=== PATIENT | female | born 1935 | race African-American/Black ===

== ENCOUNTER 2016-08-22 12:07 | Emergency (ER) | payer MEDICARE, MEDICAID ==
[~2016-08-22] VITALS: Ht 167.6 cm; Wt 110.0 kg
[~2016-08-22 12:07] MED LIST: ACET-2853 PO; ALLO100T PO; AZIT500T3 PO; BISA5TAB10 PO; CHOL100044 PO; COLC0.6T66 PO; CRANBERRY JUICE PO; CYAN100053 IM; FLUT16SP15 NS; FURO-152 PO; GABA300S PO; LEVO125T8 PO; LOSA100T14 PO; MECL-115 PO; MELO-105 PO; MULT1CAP64 PO; OCD PO; OMEP20CA10 PO; SENN-169 PO; [UNRECOGNIZED DRUG - CODE] PO; [UNRECOGNIZED DRUG - CODE] PO
[2016-08-22] MEDS ORDERED: ACETAMINOPHEN 325MG TABLET PO ONE (12:30)
[2016-08-22 14:10] VITALS: BP 155/81
== END 2016-08-22 16:55 ==
LOC: ER 12:33
DX: R51 Headache (principal); I50.9 Heart failure, unspecified; J44.9 Chronic obstructive pulmonary disease, unspecified; E78.00 Pure hypercholesterolemia, unspecified; I10 Essential (primary) hypertension; E03.9 Hypothyroidism, unspecified; Z88.0 Allergy status to penicillin; Z88.6 Allergy status to analgesic agent; Z91.041 Radiographic dye allergy status; W06.XXXA Fall from bed, initial encounter; Y93.89 Activity, other specified; Y92.122 Bedroom in nursing home as the place of occurrence of the external cause
CPT/HCPCS: 70450; 99285

== ENCOUNTER → 2017-02-18 | Outpatient (CLI) | payer MEDICARE, MEDICAID | END | disposition home or self-care (01) | LOC: CT 13:31 | PROVIDERS: ATTEND Internal Medicine | DX: J90 Pleural effusion, not elsewhere classified (principal); K80.20 Calculus of gallbladder without cholecystitis without obstruction | CPT/HCPCS: 71250 ==

== ENCOUNTER → 2017-10-14 | Day surgery (SDC) | payer MEDICARE, MEDICAID ==
[~2017-10-14] MED LIST changes: +LIDOCAINE HCL/EPINEPHRINE 1%-EPI 1:100,000 20 ML VIAL ONE; +SODIUM BICARBONATE 4% (2.4MEQ) 5ML VIAL IV ONE
== END | disposition home or self-care (01) ==
LOC: RAD 09:30
PROVIDERS: ATTEND Internal Medicine
DX: N64.1 Fat necrosis of breast (principal); N64.9 Disorder of breast, unspecified; Z79.899 Other long term (current) drug therapy
CPT/HCPCS: 19083; 88305; A4648; J3490

== ENCOUNTER 2017-12-07 06:15 | Day surgery (SDC) | payer MEDICARE, MEDICAID ==
[~2017-12-07] VITALS: Ht 175.3 cm; Wt 99.8 kg
[~2017-12-07 06:15] MED LIST changes: +ACET-2178 PO; +ASCO-339 PO; +BISA-81 PO; +CALC-25 PO; +CHOL200059 PO; +DIGO125T82 PO; +DIGO250T81 PO; +LEVO50TA8 PO; -LIDOCAINE HCL/EPINEPHRINE 1%-EPI 1:100,000 20 ML VIAL ONE; +LOSA50TA20 PO; +MULT-1146 PO; +SCOP1PAT10 TD; -SENN-169 PO; +SENN-170 PO; -SODIUM BICARBONATE 4% (2.4MEQ) 5ML VIAL IV ONE
[2017-12-07] MEDS ORDERED: SKIN ADHESIVE 0.7 GM EA TOP ONE (09:17)
[2017-12-07] MEDS ORDERED: BUPIVACAINE HCL 0.5% (5MG/ML) 50ML ONE (09:17)
[2017-12-07] MEDS ORDERED: SODIUM CHLORIDE 0.9% 1,000 ML IV ONE (10:08)
[2017-12-07] MEDS ORDERED: ONDANSETRON HCL 4MG/2ML INJ IV PRN (10:15)
== END 2017-12-07 13:45 | disposition home or self-care (01) ==
LOC: OR 06:15
PROVIDERS: ATTEND Surgery
DX: N60.32 Fibrosclerosis of left breast (principal); N61.0 Mastitis without abscess; I10 Essential (primary) hypertension; K21.9 Gastro-esophageal reflux disease without esophagitis; M19.90 Unspecified osteoarthritis, unspecified site; I48.91 Unspecified atrial fibrillation; E03.9 Hypothyroidism, unspecified; Z90.710 Acquired absence of both cervix and uterus; Z85.43 Personal history of malignant neoplasm of ovary; Z88.0 Allergy status to penicillin; Z88.8 Allergy status to other drugs, medicaments and biological substances; Z98.890 Other specified postprocedural states; Z79.899 Other long term (current) drug therapy; Z88.5 Allergy status to narcotic agent
CPT/HCPCS: 19101; 88305; 88331; J0330; J2250; J3490; J2405; J2704; J2765; J3010; J7120

== ENCOUNTER 2018-06-26 23:20 | Emergency (ER) | payer MEDICARE, MEDICAID ==
[~2018-06-26] VITALS: Ht 170.2 cm; Wt 100.0 kg
[~2018-06-26 23:20] MED LIST changes: -LOSA100T14 PO; +LOSA100T32 PO; -LOSA50TA20 PO; +LOSA50TA41 PO; -OMEP20CA10 PO; +OMEP20CA5 PO
[2018-06-27 00:28] LABS: BASOPHILS % 1.5 % (0.0-2.0); EOSINOPHILS % 1.1 % (0.0-5.0); HEMATOCRIT. 39.4 % (36.0-48.0); HEMOGLOBIN. 12.4 g/dL (12.0-16.0); MEAN CORPUSCULAR HEMOGLOBIN 23.1 pg (28.0-32.0); MEAN CORPUSCULAR VOLUME 73.4 fL (81.0-99.0); MONOCYTES % 6.1 % (2.0-8.0); NEUTROPHILS % 72.3 % (40.0-76.0); PLATELET 143 x1000/uL (130-400); RED BLOOD CELL COUNT 5.37 mill/uL (4.2-5.4); RED CELL DISTRIBUTION WIDTH 14.7 % (11.6-14.6)
[2018-06-27 00:34] LABS: CHLORIDE 110 mEq/L (98-107)
[2018-06-27] MEDS ORDERED: MECLIZINE 25MG TABLET PO ONE (01:00)
[2018-06-27] MEDS ORDERED: SODIUM CHLORIDE 0.9% 1,000 ML IV ONE (01:00)
[2018-06-27 01:32] LABS: CLARITY URINE CLEAR (CLEAR); COLOR URINE YELLOW (YELLOW); KETONES URINE NEGATIVE (NEGATIVE); LEUKOCYTE ESTERASE URINE TRACE (NEGATIVE); NITRITE URINE NEGATIVE (NEGATIVE); OCCULT BLOOD URINE TRACE (NEGATIVE); PROTEIN URINE NEGATIVE (NEGATIVE)
[2018-06-27 03:56] VITALS: BP 146/66
== END 2018-06-27 03:59 ==
LOC: ER 23:20
DX: N30.00 Acute cystitis without hematuria (principal); R42 Dizziness and giddiness; I11.0 Hypertensive heart disease with heart failure; I50.9 Heart failure, unspecified; J44.9 Chronic obstructive pulmonary disease, unspecified; E78.00 Pure hypercholesterolemia, unspecified; Z88.0 Allergy status to penicillin; Z88.5 Allergy status to narcotic agent; Z91.041 Radiographic dye allergy status; Z79.899 Other long term (current) drug therapy
CPT/HCPCS: 36415; 70450; 71045; 80053; 81003; 84484; 85025; 93005; 96360; 96361; 99284; J7030; J8597

== ENCOUNTER 2018-08-04 15:51 | Inpatient (IN) | payer MEDICARE, MEDICAID ==
[2018-08-04] VITALS: BP 117/51
[~2018-08-04] VITALS: Ht 175.3 cm; Wt 104.3 kg
[2018-08-04] MEDS ORDERED: ONDANSETRON HCL 4MG/2ML INJ IV ONE (16:15)
[2018-08-04] MEDS ORDERED: MECLIZINE 25MG TABLET PO ONE (16:15)
[2018-08-04 16:54] LABS: BASOPHILS % 0.7 % (0.0-2.0); CHLORIDE 108 mEq/L (98-107); HEMATOCRIT. 40.4 % (36.0-48.0); HEMOGLOBIN. 12.6 g/dL (12.0-16.0); LYMPHOCYTES % 12.7 % (20.0-50.0); MEAN CORPUSCULAR HEMOGLOBIN 22.9 pg (28.0-32.0); MEAN CORPUSCULAR VOLUME 73.2 fL (81.0-99.0); MONOCYTES % 4.9 % (2.0-8.0); NEUTROPHILS % 80.7 % (40.0-76.0); PLATELET 149 x1000/uL (130-400); RED BLOOD CELL COUNT 5.52 mill/uL (4.2-5.4); RED CELL DISTRIBUTION WIDTH 14.9 % (11.6-14.6)
[2018-08-04] MEDS ORDERED: FUROSEMIDE 40MG/4ML VIAL IVP NR (17:30)
[2018-08-04] MEDS ORDERED: HYDRALAZINE 20MG/ML VIAL IV NR (19:15)
[2018-08-04] MEDS ORDERED: LABETALOL 5MG/ML SYR 20 MG/4 ML SYRINGE IV NR (19:15)
[2018-08-04 22:12] VITALS: BP 116/64
[2018-08-04 23:00] VITALS: BP 116/64
[2018-08-05] MEDS ORDERED: BISA10SU8 RC (00:15)
[2018-08-05] MEDS ORDERED: IPRA3AMP31 NEB (00:30)
[2018-08-05] MEDS ORDERED: LORA10TA7 PO (00:30)
[2018-08-05] MEDS ORDERED: COLL30OI TP (00:30)
[2018-08-05] MEDS ORDERED: LACT10SO7 PO (00:42)
[2018-08-05] MEDS ORDERED: COR6 PO (00:42)
[2018-08-05 04:00] VITALS: BP 124/60
[2018-08-05 08:00] VITALS: BP 108/52
[2018-08-05 08:36] LABS: HEMATOCRIT 41.2 % (36.0-48.0); HEMOGLOBIN 12.7 g/dL (12.0-16.0); MEAN CORPUSCULAR HEMOGLOBIN 22.7 pg (28.0-32.0); MEAN CORPUSCULAR VOLUME 73.3 fL (81.0-99.0); PLATELET 152 x1000/uL (130-400); RED BLOOD CELL COUNT 5.63 mill/uL (4.2-5.4); RED CELL DISTRIBUTION WIDTH 14.9 % (11.6-14.6)
[2018-08-05] MEDS: FUROSEMIDE 40MG/4ML VIAL IVP SCH (08:36)
[2018-08-05] MEDS ORDERED: ENOXAPARIN 30MG/0.3ML SYR SUBCUT SCH (09:00)
[2018-08-05] MEDS ORDERED: MECLIZINE 25MG TABLET PO PRN (10:30)
[2018-08-05] MEDS ORDERED: CLONIDINE 0.1MG TABLET PO PRN (11:00)
[2018-08-05] MEDS: LEVOTHYROXINE SODIUM 50MCG TABLET PO SCH (11:04)
[2018-08-05] MEDS ORDERED: ACETAMINOPHEN 650MG/20.3ML UDC PO PRN (11:30)
[2018-08-05] MEDS ORDERED: ENOXAPARIN 60MG/0.6ML SYR SUBCUT NR (11:30)
[2018-08-05 11:53] LABS: T4 FREE 1.11 ng/dL (0.76-1.46)
[2018-08-05 12:00] VITALS: BP 103/63
[2018-08-05] MEDS: DILTIAZEM HCL 60MG TABLET PO SCH ×2 (12:00→18:00)
[2018-08-05] MEDS: ACETAMINOPHEN 325MG TABLET PO PRN (13:02)
[2018-08-05] MEDS: IPRATROPIUM/ALBUTEROL 0.5-3(2.5)MG/3ML NEB HHN PRN (14:11)
[2018-08-05 16:00] VITALS: BP 90/45
[2018-08-05 20:00] VITALS: BP 126/59
[2018-08-05] MEDS ORDERED: CARVEDILOL 3.125 MG TABLET PO SCH (21:00)
[2018-08-05 21:09] LABS: CLARITY URINE CLEAR (CLEAR); COLOR URINE YELLOW (YELLOW); KETONES URINE NEGATIVE (NEGATIVE); LEUKOCYTE ESTERASE URINE 3+ (NEGATIVE); NITRITE URINE NEGATIVE (NEGATIVE); OCCULT BLOOD URINE 1+ (NEGATIVE); PROTEIN URINE NEGATIVE (NEGATIVE)
[2018-08-05] MEDS: ENOXAPARIN 80MG/0.8ML SYR SUBCUT SCH (22:00)
[2018-08-06] VITALS: BP 122/71
[2018-08-06] MEDS ORDERED: LEVOFLOXACIN 250MG PREMIX 50 ML IV SCH (00:15)
[2018-08-06] MEDS: DILTIAZEM HCL 60MG TABLET PO SCH ×4 (00:56→17:03)
[2018-08-06] MEDS: LEVOFLOXACIN 250MG PREMIX 50 ML IV SCH (02:33)
[2018-08-06 04:00] VITALS: BP 118/71
[2018-08-06] MEDS: LEVOTHYROXINE SODIUM 50MCG TABLET PO SCH (06:44)
[2018-08-06 07:28] LABS: BASOPHILS % 1.2 % (0.0-2.0); EOSINOPHILS % 0.4 % (0.0-5.0); HEMATOCRIT. 37.4 % (36.0-48.0); HEMOGLOBIN. 11.8 g/dL (12.0-16.0); LYMPHOCYTES % 13.8 % (20.0-50.0); MEAN CORPUSCULAR VOLUME 72.8 fL (81.0-99.0); MEAN PLATELET VOLUME 10.5 fl (7.4-10.4); MONOCYTES % 6.3 % (2.0-8.0); NEUTROPHILS % 78.3 % (40.0-76.0); PLATELET 136 x1000/uL (130-400); RED BLOOD CELL COUNT 5.14 mill/uL (4.2-5.4); RED CELL DISTRIBUTION WIDTH 14.9 % (11.6-14.6)
[2018-08-06 07:39] LABS: CHLORIDE 105 mEq/L (98-107)
[2018-08-06 07:47] LABS: HDL CHOLESTEROL 40 mg/dL (40-59); LDL CHOLESTEROL 89 mg/dL (5-100)
[2018-08-06 08:00] VITALS: BP 130/50
[2018-08-06] MEDS: IPRATROPIUM/ALBUTEROL 0.5-3(2.5)MG/3ML NEB HHN PRN (08:34)
[2018-08-06] MEDS: FUROSEMIDE 40MG/4ML VIAL IVP SCH (08:44)
[2018-08-06] MEDS: ENOXAPARIN 80MG/0.8ML SYR SUBCUT SCH ×2 (08:44→21:50)
[2018-08-06 12:00] VITALS: BP 112/55
[2018-08-06] MEDS: NYSTATIN POWDER 15GM TOP SCH ×2 (12:05→17:03)
[2018-08-06 16:00] VITALS: BP 120/59
[2018-08-06 20:00] VITALS: BP 115/47
[2018-08-07] VITALS: BP 123/51
[2018-08-07] MEDS: DILTIAZEM HCL 60MG TABLET PO SCH ×6 (00:59→23:10)
[2018-08-07 07:20] VITALS: BP 149/77
[2018-08-07] MEDS: LEVOFLOXACIN 250MG PREMIX 50 ML IV SCH (07:26)
[2018-08-07] MEDS: LEVOTHYROXINE SODIUM 50MCG TABLET PO SCH (07:42)
[2018-08-07 08:00] VITALS: BP 131/61
[2018-08-07 09:40] LABS: CHLORIDE 102 mEq/L (98-107); INR 1.1; PROTHROMBIN TIME 11.7 sec (9.6-11.0)
[2018-08-07] MEDS: FUROSEMIDE 40MG/4ML VIAL IVP SCH (09:47)
[2018-08-07] MEDS: ENOXAPARIN 80MG/0.8ML SYR SUBCUT SCH ×2 (09:47→20:59)
[2018-08-07 09:50] LABS: BASOPHILS % 0.9 % (0.0-2.0); EOSINOPHILS % 0.5 % (0.0-5.0); HEMATOCRIT. 39.5 % (36.0-48.0); HEMOGLOBIN. 12.4 g/dL (12.0-16.0); LYMPHOCYTES % 11.6 % (20.0-50.0); MEAN CORPUSCULAR HEMOGLOBIN 22.9 pg (28.0-32.0); MEAN CORPUSCULAR VOLUME 72.8 fL (81.0-99.0); PLATELET 148 x1000/uL (130-400); RED BLOOD CELL COUNT 5.43 mill/uL (4.2-5.4)
[2018-08-07] MEDS ORDERED: MAGNESIUM 2 G PREMIX 50 ML IV SCH (10:00)
[2018-08-07] MEDS: NYSTATIN POWDER 15GM TOP SCH ×3 (10:40→18:50)
[2018-08-07] MEDS ORDERED: POTASSIUM CHLORIDE 20MEQ TABLET SR PO NR (11:15)
[2018-08-07 16:00] VITALS: BP 121/53
[2018-08-07] MEDS: ACETAMINOPHEN 325MG TABLET PO PRN (16:37)
[2018-08-07 20:00] VITALS: BP 105/57
[2018-08-07] MEDS ORDERED: GUAIFENESIN/DM 600MG/30MG ER TAB 12HR PO PRN (20:00)
[2018-08-08] VITALS: BP 121/46
[2018-08-08] MEDS: LEVOFLOXACIN 250MG PREMIX 50 ML IV SCH (01:53)
[2018-08-08 04:00] VITALS: BP 118/50
[2018-08-08] MEDS: LEVOTHYROXINE SODIUM 50MCG TABLET PO SCH (06:14)
[2018-08-08] MEDS: DILTIAZEM HCL 60MG TABLET PO SCH ×2 (06:14→13:12)
[2018-08-08] MEDS: ENOXAPARIN 80MG/0.8ML SYR SUBCUT SCH (09:00)
[2018-08-08] MEDS: FUROSEMIDE 40MG/4ML VIAL IVP SCH (09:32)
[2018-08-08] MEDS: NYSTATIN POWDER 15GM TOP SCH ×2 (09:32→13:12)
[2018-08-08 10:17] LABS: BASOPHILS % 1.2 % (0.0-2.0); EOSINOPHILS % 0.4 % (0.0-5.0); HEMATOCRIT. 38.6 % (36.0-48.0); HEMOGLOBIN. 12.2 g/dL (12.0-16.0); LYMPHOCYTES % 12.9 % (20.0-50.0); MEAN CORPUSCULAR HEMOGLOBIN 23.1 pg (28.0-32.0); MEAN CORPUSCULAR VOLUME 73.1 fL (81.0-99.0); MEAN PLATELET VOLUME 10.7 fl (7.4-10.4); NEUTROPHILS % 80.5 % (40.0-76.0); PLATELET 146 x1000/uL (130-400); RED BLOOD CELL COUNT 5.28 mill/uL (4.2-5.4); RED CELL DISTRIBUTION WIDTH 14.8 % (11.6-14.6)
[2018-08-08 10:25] LABS: PHOSPHORUS 3.1 mg/dL (2.5-4.9)
[2018-08-08] MEDS ORDERED: LIDOCAINE HCL 1% 20ML VIAL (Pyxis) INJ ONE (11:01)
[2018-08-08] MEDS ORDERED: SODIUM BICARBONATE 4% (2.4MEQ) 5ML VIAL IV ONE (11:02)
[2018-08-08] MEDS ORDERED: MAGNESIUM 2 G PREMIX 50 ML IV NR (15:00)
[2018-08-08 16:00] VITALS: BP 117/61
[2018-08-08 16:24] VITALS: BP 117/55
== END 2018-08-08 17:25 | DRG 291 ==
LOC: EDBEDREQ 19:08 → EDBEDREQTM 19:41 → ENRESERV 20:17 → ER 20:38 → 5WST 20:39
PROVIDERS: ADMIT Internal Medicine; ATTEND Internal Medicine
PROC: 0G9G3ZX Drainage of Left Thyroid Gland Lobe, Percutaneous Approach, Diagnostic (ICD-10-PCS; principal; 2018-08-08)
PROC: 0G9H3ZX Drainage of Right Thyroid Gland Lobe, Percutaneous Approach, Diagnostic (ICD-10-PCS; 2018-08-08)
DX: I13.0 Hypertensive heart and chronic kidney disease with heart failure and stage 1 through stage 4 chronic kidney disease, or unspecified chronic kidney disease (principal); I50.33 Acute on chronic diastolic (congestive) heart failure; J18.1 Lobar pneumonia, unspecified organism; N39.0 Urinary tract infection, site not specified; J44.0 Chronic obstructive pulmonary disease with (acute) lower respiratory infection; J98.11 Atelectasis; E78.5 Hyperlipidemia, unspecified; N18.9 Chronic kidney disease, unspecified; E66.01 Morbid (severe) obesity due to excess calories; K21.9 Gastro-esophageal reflux disease without esophagitis; E66.9 Obesity, unspecified; E04.2 Nontoxic multinodular goiter; I48.2 Chronic atrial fibrillation; E03.9 Hypothyroidism, unspecified; R42 Dizziness and giddiness; F03.90 Unspecified dementia, unspecified severity, without behavioral disturbance, psychotic disturbance, mood disturbance, and anxiety; M17.0 Bilateral primary osteoarthritis of knee; J32.9 Chronic sinusitis, unspecified; E78.00 Pure hypercholesterolemia, unspecified; G62.9 Polyneuropathy, unspecified; I50.82 Biventricular heart failure; K80.20 Calculus of gallbladder without cholecystitis without obstruction; I48.0 Paroxysmal atrial fibrillation; J39.8 Other specified diseases of upper respiratory tract; B96.89 Other specified bacterial agents as the cause of diseases classified elsewhere; S01.91XA Laceration without foreign body of unspecified part of head, initial encounter; X58.XXXA Exposure to other specified factors, initial encounter; Y93.89 Activity, other specified; Y92.89 Other specified places as the place of occurrence of the external cause; Y99.8 Other external cause status; Z95.828 Presence of other vascular implants and grafts; Z86.73 Personal history of transient ischemic attack (TIA), and cerebral infarction without residual deficits; Z90.710 Acquired absence of both cervix and uterus; Z85.43 Personal history of malignant neoplasm of ovary; Z79.01 Long term (current) use of anticoagulants; Z86.718 Personal history of other venous thrombosis and embolism; Z88.0 Allergy status to penicillin; Z88.5 Allergy status to narcotic agent; Z91.09 Other allergy status, other than to drugs and biological substances; Z79.899 Other long term (current) drug therapy; Z79.890 Hormone replacement therapy; Z68.34 Body mass index [BMI] 34.0-34.9, adult
CPT/HCPCS: 10005; 36415; 70551; 71045; 76536; 76700; 80048; 80061; 83735; 83880; 84100; 84439; 84443; 84481; 84484; 85027; 85379; 87077; 87186; 88172; 88173; 93005; 93306; 93970; 94640; 96374; 97110; 97162; 97166; 99285; A6261; J0360; J1650; J1940; J1956; J2405; J3475; J3490; J7050; J7620; J8597

== ENCOUNTER → 2018-08-16 | Outpatient (CLI) | payer MEDICARE, MEDICAID ==
[~2018-08-16] MED LIST changes: +BISA10SU8 RC; +COLL30OI TP; +COR6 PO; +IPRA3AMP31 NEB; +LACT10SO7 PO; +LORA10TA7 PO
== END | disposition home or self-care (01) ==
LOC: MRI 09:41
PROVIDERS: ATTEND Psychiatry & Neurology Neurology
DX: K80.20 Calculus of gallbladder without cholecystitis without obstruction (principal); K76.0 Fatty (change of) liver, not elsewhere classified; J90 Pleural effusion, not elsewhere classified; R42 Dizziness and giddiness; I11.0 Hypertensive heart disease with heart failure; I50.9 Heart failure, unspecified
CPT/HCPCS: 70544; 74181

== ENCOUNTER 2019-02-28 12:29 | Inpatient (IN) | payer MEDICARE, MEDICAID ==
[~2019-02-28] VITALS: Ht 175.3 cm; Wt 94.4 kg
[~2019-02-28 12:29] MED LIST changes: -ACET-2178 PO; -ACET-2853 PO; +ACET650T37 PO; +DIGO125T80 PO; -DIGO125T82 PO; +DIGO250T79 PO; -DIGO250T81 PO; +MAG-149 PO; +OMEP20CA14 PO; -OMEP20CA5 PO; +TOPUD PO; -[UNRECOGNIZED DRUG - CODE] PO
[2019-02-28] MEDS ORDERED: METHYLPREDNISOLONE SOD SUCC 125 MG/2 ML VIAL IV STA (13:03)
[2019-02-28] MEDS ORDERED: ALBUTEROL (0.083%) 2.5MG/3ML NEB HHN STA (13:03)
[2019-02-28] MEDS ORDERED: SODIUM CHLORIDE 0.9% 1,000 ML IV ONE (13:03)
[2019-02-28] MEDS ORDERED: IPRATROPIUM BROMIDE (0.02%) 0.5MG/2.5ML NEB HHN STA (13:03)
[2019-02-28] MEDS ORDERED: DILTIAZEM HCL 5MG/ML 5ML VIAL IV ONE (14:00)
[2019-02-28 14:07] LABS: BASOPHILS % 0.4 % (0.0-2.0); EOSINOPHILS % 0.3 % (0.0-5.0); HEMATOCRIT. 37.2 % (36.0-48.0); LYMPHOCYTES % 9.4 % (20.0-50.0); MEAN CORPUSCULAR HEMOGLOBIN 22.8 pg (28.0-32.0); MEAN CORPUSCULAR VOLUME 70.7 fL (81.0-99.0); MEAN PLATELET VOLUME 9.2 fl (7.4-10.4); MONOCYTES % 7.5 % (2.0-8.0); NEUTROPHILS % 82.4 % (40.0-76.0); PLATELET 177 x1000/uL (130-400); RED BLOOD CELL COUNT 5.26 mill/uL (4.2-5.4); RED CELL DISTRIBUTION WIDTH 15.3 % (11.6-14.6)
[2019-02-28 14:15] LABS: CHLORIDE 105 mEq/L (98-107); INR 1.1; PROTHROMBIN TIME 11.5 sec (9.6-11.0)
[2019-02-28] MEDS ORDERED: LEVOFLOXACIN 750MG PREMIX 150 ML IV ONE (14:30)
[2019-02-28] MEDS ORDERED: DILTIAZEM HCL 5MG/ML 10ML VIAL IV ONE (15:45)
[2019-02-28 22:00] VITALS: BP 139/75
[2019-02-28] MEDS ORDERED: LACTULOSE 20G/30ML UDC PO SCH (22:45)
[2019-02-28 23:30] VITALS: BP 123/68
[2019-03-01] VITALS (12 sets, daily range): BP systolic 104–157; BP diastolic 59–103
[2019-03-01] MEDS: IPRATROPIUM/ALBUTEROL 0.5-3(2.5)MG/3ML NEB HHN SCH ×2 (01:30→20:02)
[2019-03-01] MEDS: OMEPRAZOLE 20MG CAPSULE EXTENDED RELEASE PO SCH (06:43)
[2019-03-01] MEDS: LEVOTHYROXINE SODIUM 75MCG TABLET PO SCH (06:43)
[2019-03-01] MEDS: MULTIVITAMINS,THER W-MINERALS TABLET PO SCH (08:32)
[2019-03-01] MEDS: LORATADINE 10MG TABLET PO PRN (08:32)
[2019-03-01] MEDS: DOCUSATE SODIUM 250MG CAPSULE PO SCH (08:32)
[2019-03-01] MEDS: LOSARTAN POTASSIUM 100 MG TABLET PO SCH (08:32)
[2019-03-01] MEDS: ASCORBIC ACID 500 MG TABLET PO SCH (08:32)
[2019-03-01] MEDS ORDERED: DILTIAZEM HCL 60MG TABLET PO SCH (09:00)
[2019-03-01] MEDS ORDERED: CYANOCOBALAMIN 1000MCG/ML VIAL IM SCH (09:00)
[2019-03-01] MEDS: DILTIAZEM HCL 60MG TABLET PO SCH ×2 (14:00→22:41)
[2019-03-01] MEDS: ACETAMINOPHEN 325MG TABLET PO PRN (14:46)
[2019-03-01] MEDS: LEVOFLOXACIN 500MG PREMIX 100 ML IV SCH (14:46)
[2019-03-01] MEDS: APIXABAN 2.5 MG TABLET PO SCH (17:47)
[2019-03-02] VITALS (12 sets, daily range): BP systolic 104–132; BP diastolic 57–80
[2019-03-02] MEDS: IPRATROPIUM/ALBUTEROL 0.5-3(2.5)MG/3ML NEB HHN SCH ×5 (01:10→21:07)
[2019-03-02] MEDS: DILTIAZEM HCL 60MG TABLET PO SCH ×3 (05:53→21:49)
[2019-03-02 06:13] LABS: HEMATOCRIT. 38.7 % (36.0-48.0); HEMOGLOBIN. 12.1 g/dL (12.0-16.0); MEAN CORPUSCULAR HEMOGLOBIN 22.3 pg (28.0-32.0); MEAN CORPUSCULAR VOLUME 71.2 fL (81.0-99.0); MEAN PLATELET VOLUME 9.9 fl (7.4-10.4); PLATELET 147 x1000/uL (130-400); RED BLOOD CELL COUNT 5.44 mill/uL (4.2-5.4); RED CELL DISTRIBUTION WIDTH 15.2 % (11.6-14.6)
[2019-03-02 06:50] LABS: CHLORIDE 104 mEq/L (98-107)
[2019-03-02] MEDS: OMEPRAZOLE 20MG CAPSULE EXTENDED RELEASE PO SCH (07:00)
[2019-03-02] MEDS: LEVOTHYROXINE SODIUM 75MCG TABLET PO SCH (07:00)
[2019-03-02] MEDS: ASCORBIC ACID 500 MG TABLET PO SCH (08:52)
[2019-03-02] MEDS: LOSARTAN POTASSIUM 100 MG TABLET PO SCH (08:52)
[2019-03-02] MEDS: APIXABAN 2.5 MG TABLET PO SCH ×2 (08:52→17:27)
[2019-03-02] MEDS: MULTIVITAMINS,THER W-MINERALS TABLET PO SCH (08:52)
[2019-03-02] MEDS: DOCUSATE SODIUM 250MG CAPSULE PO SCH (08:53)
[2019-03-02] MEDS: LORATADINE 10MG TABLET PO PRN (08:53)
[2019-03-02 12:13] LABS: PLATELET ESTIMATE NORMAL
[2019-03-02] MEDS ORDERED: GUAIFENESIN-DM 200MG-20MG/10ML UDC PO PRN (12:30)
[2019-03-02] MEDS: LEVOFLOXACIN 500MG PREMIX 100 ML IV SCH (15:12)
[2019-03-03] VITALS (12 sets, daily range): BP systolic 103–139; BP diastolic 59–90
[2019-03-03] MEDS: IPRATROPIUM/ALBUTEROL 0.5-3(2.5)MG/3ML NEB HHN SCH ×6 (01:32→20:41)
[2019-03-03] MEDS: DILTIAZEM HCL 60MG TABLET PO SCH (06:19)
[2019-03-03 07:12] LABS: BASOPHILS % 0.8 % (0.0-2.0); EOSINOPHILS % 0.3 % (0.0-5.0); HEMATOCRIT. 37.2 % (36.0-48.0); HEMOGLOBIN. 11.6 g/dL (12.0-16.0); LYMPHOCYTES % 14.7 % (20.0-50.0); MEAN CORPUSCULAR HEMOGLOBIN 22.4 pg (28.0-32.0); MEAN CORPUSCULAR VOLUME 71.5 fL (81.0-99.0); MEAN PLATELET VOLUME 10.4 fl (7.4-10.4); MONOCYTES % 7.7 % (2.0-8.0); NEUTROPHILS % 76.5 % (40.0-76.0); PLATELET 174 x1000/uL (130-400); RED BLOOD CELL COUNT 5.21 mill/uL (4.2-5.4); RED CELL DISTRIBUTION WIDTH 14.9 % (11.6-14.6)
[2019-03-03 08:13] LABS: CHLORIDE 106 mEq/L (98-107)
[2019-03-03] MEDS: LEVOTHYROXINE SODIUM 75MCG TABLET PO SCH (09:03)
[2019-03-03] MEDS: ASCORBIC ACID 500 MG TABLET PO SCH (09:03)
[2019-03-03] MEDS: APIXABAN 2.5 MG TABLET PO SCH (09:03)
[2019-03-03] MEDS: LOSARTAN POTASSIUM 100 MG TABLET PO SCH (09:03)
[2019-03-03] MEDS: FAMOTIDINE 20MG TABLET PO SCH ×2 (09:03→20:20)
[2019-03-03] MEDS: DOCUSATE SODIUM 250MG CAPSULE PO SCH (09:03)
[2019-03-03] MEDS: MULTIVITAMINS,THER W-MINERALS TABLET PO SCH (09:03)
[2019-03-03] MEDS: LEVOFLOXACIN 500MG PREMIX 100 ML IV SCH (14:51)
[2019-03-03] MEDS: APIXABAN 5 MG TABLET PO SCH (17:37)
[2019-03-03] MEDS: DILTIAZEM HCL 90MG TABLET PO SCH ×2 (17:37→23:06)
[2019-03-03] MEDS: ACETAMINOPHEN 325MG TABLET PO PRN (22:23)
[2019-03-04] VITALS (11 sets, daily range): BP systolic 98–134; BP diastolic 55–92
[2019-03-04] MEDS: IPRATROPIUM/ALBUTEROL 0.5-3(2.5)MG/3ML NEB HHN SCH ×4 (00:19→16:55)
[2019-03-04] MEDS: DILTIAZEM HCL 90MG TABLET PO SCH ×3 (05:34→17:31)
[2019-03-04 06:25] LABS: BASOPHILS % 1.4 % (0.0-2.0); EOSINOPHILS % 0.7 % (0.0-5.0); HEMATOCRIT. 36.2 % (36.0-48.0); HEMOGLOBIN. 11.5 g/dL (12.0-16.0); LYMPHOCYTES % 20.3 % (20.0-50.0); MEAN CORPUSCULAR HEMOGLOBIN 22.7 pg (28.0-32.0); MEAN CORPUSCULAR VOLUME 71.4 fL (81.0-99.0); MEAN PLATELET VOLUME 10.5 fl (7.4-10.4); MONOCYTES % 6.3 % (2.0-8.0); NEUTROPHILS % 71.3 % (40.0-76.0); PLATELET 183 x1000/uL (130-400); RED BLOOD CELL COUNT 5.06 mill/uL (4.2-5.4); RED CELL DISTRIBUTION WIDTH 15.6 % (11.6-14.6)
[2019-03-04 06:42] LABS: CHLORIDE 107 mEq/L (98-107)
[2019-03-04] MEDS: MULTIVITAMINS,THER W-MINERALS TABLET PO SCH (08:41)
[2019-03-04] MEDS: DOCUSATE SODIUM 250MG CAPSULE PO SCH (08:41)
[2019-03-04] MEDS: FAMOTIDINE 20MG TABLET PO SCH ×2 (08:41→21:31)
[2019-03-04] MEDS: APIXABAN 5 MG TABLET PO SCH ×2 (08:41→17:31)
[2019-03-04] MEDS: LEVOTHYROXINE SODIUM 75MCG TABLET PO SCH (08:41)
[2019-03-04] MEDS: ASCORBIC ACID 500 MG TABLET PO SCH (08:41)
[2019-03-04] MEDS: LOSARTAN POTASSIUM 100 MG TABLET PO SCH (08:42)
[2019-03-04] MEDS: LEVOFLOXACIN 500MG PREMIX 100 ML IV SCH (15:24)
[2019-03-04] MEDS ORDERED: DIGOXIN 500MCG/2ML AMP IV SCH (18:00)
[2019-03-04] MEDS: ACETAMINOPHEN 325MG TABLET PO PRN (21:33)
== END 2019-03-04 21:32 | DRG 194 ==
LOC: ER 12:29 → EDBEDREQ 14:59 → EDBEDREQTM 14:59 → EDBEDREQSVC 14:59 → ENRESERV 19:51 → 5EST 21:07
PROVIDERS: ADMIT Internal Medicine; ATTEND Internal Medicine
DX: J18.9 Pneumonia, unspecified organism (principal); E46 Unspecified protein-calorie malnutrition; I48.19 Other persistent atrial fibrillation; I50.32 Chronic diastolic (congestive) heart failure; J44.0 Chronic obstructive pulmonary disease with (acute) lower respiratory infection; E03.9 Hypothyroidism, unspecified; M17.0 Bilateral primary osteoarthritis of knee; E66.9 Obesity, unspecified; E78.00 Pure hypercholesterolemia, unspecified; F41.9 Anxiety disorder, unspecified; G89.29 Other chronic pain; I11.0 Hypertensive heart disease with heart failure; K21.9 Gastro-esophageal reflux disease without esophagitis; I95.9 Hypotension, unspecified; I27.20 Pulmonary hypertension, unspecified; Z74.01 Bed confinement status; Z96.653 Presence of artificial knee joint, bilateral; Z79.01 Long term (current) use of anticoagulants; Z86.718 Personal history of other venous thrombosis and embolism; Z86.73 Personal history of transient ischemic attack (TIA), and cerebral infarction without residual deficits; Z68.30 Body mass index [BMI] 30.0-30.9, adult; Z95.828 Presence of other vascular implants and grafts; Z99.3 Dependence on wheelchair; Z88.0 Allergy status to penicillin; Z88.6 Allergy status to analgesic agent; Z91.041 Radiographic dye allergy status; Z79.899 Other long term (current) drug therapy
CPT/HCPCS: 36415; 71045; 80048; 80053; 83605; 83880; 84436; 84443; 84484; 85025; 87804; 93005; 93306; 94640; 96365; 96374; 96375; 96376; 99291; A6261; J1956; J2930; J3490; J7030